=== PATIENT | female | born 1995 | race African-American/Black ===

== ENCOUNTER 2017-02-08 19:11 | Emergency (ER) | payer OTHER ==
[~2017-02-08 19:11] MED LIST: K-DUR20 ME1 PO; LANTUS100 U/ML SUBQ
[2017-02-08 20:26] LABS: URINE SOURCE CLEAN CATCH
[2017-02-08 20:38] LABS: URINE APPEARANCE CLEAR; URINE BILIRUBIN NEG (NEG); URINE BLOOD TRACE (NEG); URINE COLOR YELLOW; URINE GLUCOSE >1000 MG/DL (NEG); URINE KETONE NEG (NEG); URINE LEUKOCYTE ESTERASE NEG (NEG); URINE NITRATE NEG (NEG); URINE PROTEIN NEG (NEG); URINE UROBILINOGEN 0.2 MG/DL (NEG)
[2017-02-08 20:41] LABS: CULTURE INDICATED? YES; URINE BACTERIA AUWI 2+ (NEGATIVE); URINE SQUAMOUS EPITHELIAL CELL OCC /[HPF]
[2017-02-08 20:53] LABS: BUN/CREATININE RATIO 18.88; CALCIUM SERUM 9.4 mg/dL (8.4-10.2); CREATININE SERUM 0.9 mg/dL (0.6-1.4); GLOM FILT RATE Estimated 104.5 mL/min (>60); POTASSIUM 3.7 mmol/L (3.5-5.1)
== END 2017-02-08 21:47 | disposition home or self-care (01) ==
LOC: CFTX 19:11 → CED 19:11 → CFTX 19:42
PROVIDERS: Nurse Practitioner
DX: R51 Headache (principal); E11.65 Type 2 diabetes mellitus with hyperglycemia; Z79.4 Long term (current) use of insulin; Z79.899 Other long term (current) drug therapy; V43.52XA Car driver injured in collision with other type car in traffic accident, initial encounter
CPT/HCPCS: 36415; 80048; 81003; 82947; 84703; 87086; 96361; 96374; 99284

== ENCOUNTER 2017-02-10 12:39 | Emergency (ER) | payer OTHER ==
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
== END 2017-02-10 15:03 | disposition home or self-care (01) ==
LOC: CED 12:39 → CFTX 12:39
DX: S39.012A Strain of muscle, fascia and tendon of lower back, initial encounter (principal); E10.8 Type 1 diabetes mellitus with unspecified complications; Z79.4 Long term (current) use of insulin; X50.9XXA Other and unspecified overexertion or strenuous movements or postures, initial encounter; Y92.9 Unspecified place or not applicable
CPT/HCPCS: 72100; 82947; 99283